=== PATIENT | female | born 2000 | race Caucasian/White ===

== ENCOUNTER 2021-02-03 09:07 | Emergency (ER) | payer MEDICAID ==
[~2021-02-03] VITALS: Ht 175.3 cm; Wt 52.2 kg
--- NOTE | 2021-02-03 09:24 | NUR ---
Patient to ER bed 8 to gown for evaluation. Side rails up. Report given to Lisa TORRES.
[2021-02-03 09:25] VITALS: BP_SYST 103
--- NOTE | 2021-02-03 09:29 | NUR ---
ER at bedside examining patient.
[2021-02-03] MEDS ORDERED: IBUPROFEN 600 MG TABLET PO ONE (09:30)
[2021-02-03] MEDS ORDERED: HYDR-3917 PO (09:31)
[2021-02-03] MEDS ORDERED: CORTEARS RIGHT EAR (09:31)
[2021-02-03] MEDS ORDERED: AMOX500C2 PO (09:31)
--- NOTE | 2021-02-03 09:31 | NUR ---
PT COMES TO ER WITH C/O RT EAR PAIN SINCE THIS MORNING UPON WAKING UP. DENIES ANY FEVERR/CHILLS. SKIN W/D/I. NO DRAINAGE ORHEARING LOSS TO EARS.
[2021-02-03 09:37] VITALS: BP_SYST 103
--- NOTE | 2021-02-03 09:43 | NUR ---
Patient given written and verbal discharge instructions and verbalizes understanding. ER MD discussed with patient the results and treatment provided. Patient in stable condition. ID arm band removed. Rx of NORCO, AOXICILLIN, NEOMY SLUF DROPS given. Patient educated on pain management and to follow up with PMD. Pain Scale . Opportunity for questions provided and answered. Medication side effect fact sheet provided.
== END 2021-02-03 09:37 | disposition home or self-care (01) ==
LOC: SED 09:07
DX: H66.91 Otitis media, unspecified, right ear (principal); Z79.899 Other long term (current) drug therapy
CPT/HCPCS: 99283